=== PATIENT | female | born 1965 | race Caucasian/White ===

== ENCOUNTER 2017-06-28 09:03 | Day surgery (SDC) | payer OTHER ==
[2017-06-28] MEDS ORDERED: PROPOFOL 10 MG/ML VIAL IV ONE (09:04)
[2017-06-28] MEDS ORDERED: LIDOCAINE 2% MDV (20MG/ML) 20ML VIAL IV ONE (09:04)
--- NOTE | 2017-06-28 13:30 | Operative Note ---
DATE OF SURGERY: 06/28/2017 OPERATION: Screening COLONOSCOPY. PREOPERATIVE DIAGNOSIS: Average risk for colon cancer, initial screening. POSTOPERATIVE DIAGNOSIS: Normal exam. PREPARATION QUALITY: Excellent. ESTIMATED BLOOD LOSS: None. COMPLICATIONS: None apparent. PROCEDURE: After informed consent was obtained from the patient, she was placed in the left lateral decubitus position in the endoscopy suite, sedated and monitored by the department of anesthesia. Digital rectal exam was unremarkable. A well-lubricated PBD452 colonoscope was inserted into the rectum and advanced to the cecum. Preparation quality was excellent. The cecum, ileocecal valve, appendiceal orifice, ascending colon, transverse colon, descending colon, sigmoid colon, and rectum were inspected in retrograde fashion. No polyps, mass lesions, or inflammation was seen. Forward and J-turn views of the rectum and anorectum were unremarkable. The endoscope was straightened, the rectal ampulla deflated, and the endoscope was removed. RECOMMENDATIONS: The patient should resume her medications and diet. Based on her average risk and negative exam, I would recommend a repeat exam in 10 years. As always, thank you for allowing me to participate in the healthcare of your patients. CC: Dr. Fiorella THOMPSON
== END 2017-06-28 10:20 | disposition home or self-care (01) ==
LOC: HOP 09:03
PROVIDERS: ATTEND Internal Medicine Gastroenterology
DX: Z12.11 Encounter for screening for malignant neoplasm of colon (principal); I10 Essential (primary) hypertension
CPT/HCPCS: 00810; G0121